=== PATIENT | female | born 1950 | race Hispanic/Latino ===

== ENCOUNTER → 2019-07-09 | Emergency (ER) | payer SELFPAY ==
[~2019-07-09] MED LIST: ALBUTEROL 2.5 MG/3 ML NEBU IH ONE; IPRATROPIUM 0.02% NEBU 2.5 ML IH ONE; methylPREDNISolone Sod Succinate 125 MG/2 ML INJ IV ONE
--- NOTE | 2019-07-09 18:14 | Event Note ---
ED Screening Note Date of service: 07/09/19 Time: 18:10 ED Screening Note: This is a 69 y.o. F. that presents to the ER with chest discomfort with cough for 1 week. PMH of CHF This initial assessment/diagnostic orders/clinical plan/treatment(s) is/are subject to change based on patients health status, clinical progression and re- assessment by fellow clinical providers in the ED. Further treatment and workup at subsequent clinical providers discretion. Patient/guardian urged not to elope from the ED as their condition may be serious if not clinically assessed and managed. Initial orders include: Labs EKG CXR
--- NOTE | 2019-07-09 19:02 | XRay Report ---
CHEST 2 VIEWS INDICATION / CLINICAL INFORMATION: dyspnea and cough. COMPARISON: None available. FINDINGS: SUPPORT DEVICES: None. HEART / MEDIASTINUM: No significant abnormality. LUNGS / PLEURA: No significant pulmonary or pleural abnormality. No pneumothorax. ADDITIONAL FINDINGS: There is a moderate to large hiatal hernia. IMPRESSION: 1. No acute findings. 2. Moderately large hiatal hernia. Signer Name: Sen Maddox MD Signed: 07/09/2019 6:57 PM Workstation Name: [id number]
[2019-07-09 19:07] LABS: Basophils # (Auto) 0.1 K/mm3 (0.0-0.1); Basophils % (Auto) 0.7 % (0.0-1.8); Eosinophils # (Auto) 0.7 K/mm3 (0.0-0.4); Eosinophils % (Auto) 5.4 % (0.0-4.3); Hematocrit 34.7 % (30.3-42.9); Hemoglobin 11.5 gm/dl (10.1-14.3); Lymphocytes # (Auto) 2.6 K/mm3 (1.2-5.4); Mean Corpuscular HGB Conc 33 % (30-34); Mean Corpuscular Volume 91 fl (79-97); Platelet Count 315 K/mm3 (140-440); Red Blood Count 3.82 M/mm3 (3.65-5.03); Red Cell Distribution Width 13.5 % (13.2-15.2)
[2019-07-09 19:27] LABS: Calcium 8.5 mg/dL (8.4-10.2)
--- NOTE | 2019-07-10 02:03 | Emergency Department Report ---
ED Shortness of Breath HPI - General Chief Complaint: Dyspnea/Respdistress Stated Complaint: DIFFICULT BREATHING Time Seen by Provider: 07/09/19 18:09 Source: patient Mode of arrival: Ambulatory Limitations: No Limitations - History of Present Illness Initial Comments: Patient is 69 years old female with history of congestive heart failure. Patient presented to the ER complaining of shortness of breath and cough, productive with greenish sputum for the last week. Patient is also complaining of chest pain mainly when she started coughing. Patient denied any fever or chills. No nausea or vomiting. MD Complaint: shortness of breath, cough -: week(s) Known History Of: congestive heart failure - Related Data Allergies Allergy/AdvReac Type Severity Reaction Status Date / Time No Known Allergies Allergy Unverified 07/09/19 18:03 ED Review of Systems ROS: Stated complaint: DIFFICULT BREATHING Other details as noted in HPI Comment: All other systems reviewed and negative Constitutional: denies: chills, fever Respiratory: cough, shortness of breath, SOB with exertion, SOB at rest, wheezing Cardiovascular: chest pain. denies: palpitations, dyspnea on exertion, orthopnea Gastrointestinal: denies: abdominal pain, nausea, vomiting Neurological: denies: headache, weakness ED Past Medical Hx - Past Medical History Previous Medical History?: Yes Hx Congestive Heart Failure: Yes Hx Psychiatric Treatment: Yes (anxiety) - Surgical History Past Surgical History?: Yes Additional Surgical History: hysterectomy - Social History Smoking Status: Former Smoker Substance Use Type: None ED Physical Exam - General Limitations: No Limitations General appearance: alert, in no apparent distress - Head Head exam: Present: atraumatic, normocephalic, normal inspection - Eye Eye exam: Present: normal appearance - ENT ENT exam: Present: normal exam, normal orophraynx, mucous membranes moist - Neck Neck exam: Present: normal inspection, full ROM. Absent: tenderness, meningismus, lymphadenopathy, thyromegaly - Respiratory Respiratory exam: Present: wheezes, rhonchi. Absent: rales, stridor, chest wall tenderness, accessory muscle use, decreased breath sounds, prolonged expiratory - Cardiovascular Cardiovascular Exam: Present: regular rate, normal rhythm, normal heart sounds - GI/Abdominal GI/Abdominal exam: Present: soft, normal bowel sounds. Absent: distended, tenderness, guarding, rebound, rigid, organomegaly, mass, bruit, pulsatile mass, hernia - Extremities Exam Extremities exam: Present: normal inspection, full ROM, normal capillary refill. Absent: tenderness, pedal edema, joint swelling, calf tenderness - Back Exam Back exam: Present: normal inspection, full ROM. Absent: CVA tenderness (R), CVA tenderness (L), muscle spasm, paraspinal tenderness, vertebral tenderness - Neurological Exam Neurological exam: Present: alert, oriented X3, CN II-XII intact, normal gait, reflexes normal. Absent: motor sensory deficit - Psychiatric Psychiatric exam: Present: normal mood - Skin Skin exam: Present: warm, intact, normal color ED Course Vital Signs 07/09/19 07/10/19 07/10/19 18:09 02:00 02:24 Temperature 97.9 F 97.6 F Pulse Rate 84 98 H Pulse Rate [ 85 Posterior] Respiratory 20 24 Rate Respiratory 15 Rate [Posterior ] Blood Pressure 107/57 Blood Pressure 126/55 [Left] O2 Sat by Pulse 96 97 Oximetry - Reevaluation(s) Reevaluation #1: 07/12/19 09:14 Please note this is a wrong account and the new account with a different name first name Tiffanie. ED Medical Decision Making - Lab Data Result diagrams: 07/09/19 18:50 07/09/19 18:50 - EKG Data -: EKG Interpreted by Me EKG shows normal: sinus rhythm Rate: normal - Radiology Data Radiology results: report reviewed Critical care attestation.: If time is entered above; I have spent that time in minutes in the direct care of this critically ill patient, excluding procedure time. ED Disposition Clinical Impression: Acute bronchitis, Shortness of breath Disposition: -01 TO HOME OR SELFCARE Is pt being admited?: No Condition: Stable Instructions: Acute Bronchitis (ED) Referrals: BARBARA ESPINOZA MD [Primary Care Provider] - 3-5 Days
[2019-07-10 03:58] VITALS: BP 126/55
== END | disposition home or self-care (01) ==
LOC: EDBD → ED 17:57
DX: J20.9 Acute bronchitis, unspecified (principal); F41.9 Anxiety disorder, unspecified; Z90.710 Acquired absence of both cervix and uterus
CPT/HCPCS: 36415; 71046; 80048; 83880; 84484; 85025; 93005; 93010; 94640; 94644; 96365; 96375; J1956; J2930